=== PATIENT | male | born 1990 | race Caucasian/White ===

== ENCOUNTER 2017-01-08 16:53 | Emergency (ER) | payer OTHER ==
[2017-01-08] MEDS ORDERED: ONDANSETRON 4 MG/2 ML VIAL IVP ONE (17:08)
[2017-01-08] MEDS ORDERED: NS 1,000 ML IV ONE ×2 (17:25→18:50)
--- NOTE | 2017-01-08 17:31 | EDPHY ---
H & P Stated Complaint: abd discomfort and n/v/d for a wk, 3X vomiting today Time Seen by Provider: 01/08/17 17:09 HPI/ROS: CHIEF COMPLAINT: Nausea HISTORY OF PRESENT ILLNESS: This is a 26-year-old male, status post appendectomy 1 year ago, who presents with nausea. This is not a new problem for him but is been worse over the last 3 days. 2 days ago he had a bout of vomiting after eating, felt pretty well yesterday, but today he has had persistent nausea, 1 episode of vomiting after eating, and 2 episodes of diarrhea. The diarrhea is not unusual for him. He states that he regularly has diarrhea and never has a solid stool. He has not seen blood in his stool. For the past year, possibly longer, he has had an "unsettled" stomach with bloating, nausea, and lots of rumbling. He reports decreased appetite. No significant weight loss. Today he feels worse than usual. He did not have fever but was shivering earlier in the day. He ate [place] food yesterday--his girlfriend ate the same and she feels fine. 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 He recalls being told to be careful about what he eats. REVIEW OF SYSTEMS: A ten point review of systems was performed and is negative with the exception of the items mentioned in the HPI. Past medical history: Negative Past surgical history: Appendectomy Family history: Father has hypertension Social history: He works as a . He is here with his girlfriend. He does not use tobacco products. He drinks 2 beers per week. General Appearance: Alert. Vital signs reviewed. Blood pressure 130/80, heart rate 115 at triage. Eyes: Pupils equal and round, no conjunctival injection, no discharge. Anicteric. ENT, Mouth: Mucous membranes are moist, no oropharyngeal erythema or edema. Neck: No lymphadenopathy, supple. Respiratory: Lungs are clear to auscultation; no wheezes, rales, or rhonchi. Cardiovascular: tachycardic at the time of my initial exam, no murmur, rub, or gallop. Gastrointestinal: Abdomen is soft and nontender, no masses or organomegaly, bowel sounds normal. Skin: Warm and dry, no rashes on exposed skin, normal color. Back: Nontender to palpation over the thoracolumbar spine. No CVAT. Extremities: No lower extremity edema, no calf tenderness or swelling. Neurological: Alert and oriented. Moving all four extremities easily and equally. Psychiatric: Normal affect. - Personal History Current Tetanus/Diphtheria Vaccine: Unsure Current Tetanus Diphtheria and Acellular Pertussis (TDAP): Unsure - Medical/Surgical History Hx Asthma: No Hx Chronic Respiratory Disease: No Hx Diabetes: No Hx Cardiac Disease: No Hx Renal Disease: No Hx Cirrhosis: No Hx Alcoholism: No Hx HIV/AIDS: No Hx Splenectomy or Spleen Trauma: No Other PMH: Appendectomy - Social History Smoking Status: Never smoked Constitutional: Initial Vital Signs Temperature (C) 36.5 C 01/08/17 16:59 Heart Rate 115 H 01/08/17 16:59 Respiratory Rate 16 01/08/17 16:59 Blood Pressure 130/80 H 01/08/17 16:59 O2 Sat (%) 94 01/08/17 16:59 O2 Delivery Mode Room Air Allergies/Adverse Reactions: No Known Allergies Allergy (Verified 01/08/17 17:04) Home Medications: Medication Instructions Recorded Ondansetron Odt [Zofran Odt 4 mg 4 mg PO Q4 PRN #10 tab 01/08/17 (RX)] Medical Decision Making ED Course/Re-evaluation: Nausea with 1 bout of vomiting. Also 2 episodes of diarrhea today (not unusual for him). No fever. These problems are not new for him but seem to be worse over the last couple of days. Physical examination is unremarkable; no abdominal pain. Will rehydrate with IV fluids as he has had 2 bouts of diarrhea and 1 bout of vomiting with very little oral intake today. Zofran for nausea. Check blood work. Re-evaluated at 6:00 p.m.. He did vomit once before receiving the Zofran, not since. Abdomen remains nontender. No diarrhea thus far. Re-evaluated at 7:00 p.m.. Abdomen remains nontender. He still has mild nausea and feels that his 2nd L of IV fluid would be helpful. A 2nd L will be administered and then will try ice chips. I suspect that he has gastroenteritis on top of his chronic abdominal complaints. 7:45 p.m.. He has tolerated PO in feels well enough to return home after 2 L of IV normal saline. His tachycardia has resolved. He has not had further vomiting in the emergency department and has not had diarrhea since arriving here. He is given a prescription for Zofran to use if needed. He is also referred to GI to address his chronic abdominal complaints. Differential Diagnosis: Abdominal pain including but not limited to pancreatitis, inflammatory bowel, irritable bowel, cholecystitis, gastritis/peptic ulcer disease and urinary tract infection. - Data Points Laboratory Results: Laboratory Results 01/08/17 17:35 01/08/17 17:35 01/08/17 01/08/17 01/08/17 17:35 17:35 17:35 WBC 14.71 10^3/uL H 10^3/uL (3.80-9.50) RBC 5.98 10^6/uL 10^6/uL (4.40-6.38) Hgb 18.7 g/dL H g/dL (13.7-17.5) Hct 50.7 % % (40.0-51.0) MCV 84.8 fL fL (81.5-99.8) MCH 31.3 pg pg (27.9-34.1) MCHC 36.9 g/dL H g/dL (32.4-36.7) RDW 11.5 % % (11.5-15.2) Plt Count 243 10^3/uL 10^3/uL (150-400) MPV 9.0 fL fL (8.7-11.7) Neut % (Auto) 90.8 % H % (39.3-74.2) Lymph % (Auto) 4.1 % L % (15.0-45.0) [place] % (Auto) 4.0 % L % (4.5-13.0) Eos % (Auto) 0.5 % L % (0.6-7.6) Baso % (Auto) 0.1 % L % (0.3-1.7) Nucleat RBC Rel Count 0.0 % % (0.0-0.2) Absolute Neuts (auto) 13.36 10^3/uL H 10^3/uL (1.70-6.50) Absolute Lymphs (auto) 0.60 10^3/uL L 10^3/uL (1.00-3.00) Absolute Monos (auto) 0.59 10^3/uL 10^3/uL (0.30-0.80) Absolute Eos (auto) 0.08 10^3/uL 10^3/uL (0.03-0.40) Absolute Basos (auto) 0.01 10^3/uL L 10^3/uL (0.02-0.10) Absolute Nucleated RBC 0.00 10^3/uL 10^3/uL (0-0.01) Immature Gran % 0.5 % % (0.0-1.1) Immature Gran # 0.07 10^3/uL 10^3/uL (0.00-0.10) Sodium 140 mEq/L mEq/L (134-144) Potassium 4.2 mEq/L mEq/L (3.5-5.2) Chloride 97 mEq/L mEq/L (97-110) Carbon Dioxide 26 mEq/l mEq/l (22-31) Anion Gap 17 mEq/L H mEq/L (8-16) BUN 18 mg/dL mg/dL (7-23) Creatinine 1.0 mg/dL mg/dL (0.7-1.3) Estimated GFR > 60 Glucose 105 mg/dL H mg/dL (70-100) Calcium 10.0 mg/dL mg/dL (8.5-10.4) Total Bilirubin 1.0 mg/dL mg/dL (0.1-1.4) Conjugated Bilirubin 0.1 mg/dL mg/dL (0.0-0.5) Unconjugated Bilirubin 0.9 mg/dL mg/dL (0.0-1.1) AST 23 IU/L IU/L (17-59) ALT 35 IU/L IU/L (21-72) Alkaline Phosphatase 49 IU/L IU/L (38-126) Total Protein 7.5 g/dL g/dL (6.3-8.2) Albumin 4.8 g/dL g/dL (3.5-5.0) Lipase 209 IU/L IU/L (23-300) H. pylori IgG Antibody NEGATIVE (NEG) Medications Given: Discontinued Medications Sodium Chloride (Ns) 1,000 mls @ 0 mls/hr IV EDNOW ONE; Wide Open PRN Reason: Protocol Stop: 01/08/17 17:26 Last Admin: 01/08/17 17:29 Dose: 1,000 mls Sodium Chloride (Ns) 1,000 mls @ 0 mls/hr IV EDNOW ONE; Wide Open PRN Reason: Protocol Stop: 01/08/17 18:51 Last Admin: 01/08/17 18:56 Dose: 1,000 mls Ondansetron HCl (Zofran) 4 mg IVP EDNOW ONE Stop: 01/08/17 17:09 Last Admin: 01/08/17 17:34 Dose: 4 mg Departure - Departure Disposition: Home, Routine, Self-Care Clinical Impression: Gastroenteritis Nausea & vomiting Qualifiers: Vomiting type: unspecified Vomiting Intractability: non-intractable Qualified Code(s): R11.2 - Nausea with vomiting, unspecified Condition: Good Instructions: Gastroenteritis (ED), Acute Nausea and Vomiting (ED) Referrals: Juliana Fry MD [Medical Doctor] - As per Instructions Braden Barbosa MD [Medical Doctor] - As per Instructions Prescriptions: Ondansetron Odt [Zofran Odt 4 mg (RX)] 4 mg PO Q4 PRN #10 tab PRN Reason: nausea
[2017-01-08 17:39] LABS: % IMMATURE GRANULYOCYTES 0.5 % (0.0-1.1); ABSOLUTE IMMATURE GRANULOCYTES 0.07 10^3/uL (0.00-0.10); ADD DIFF? NO; ADD MORPH? NO; ADD SCAN? NO; ATYPICAL LYMPHOCYTE FLAG 0 (0-99); FRAGMENT RBC FLAG 0 (0-99); HEMATOCRIT 50.7 % (40.0-51.0); HEMOGLOBIN 18.7 g/dL (13.7-17.5); LEFT SHIFT FLG 0 (0-99); LIPEMIA HEMOLYSIS FLAG 90 (0-99); MEAN CELL HEMOGLOBIN 31.3 pg (27.9-34.1); MEAN CELL HEMOGLOBIN CONCENTR. 36.9 g/dL (32.4-36.7); MEAN CELL VOLUME 84.8 fL (81.5-99.8); PLATELET CLUMPS FLAG 20 (0-99); PLATELET COUNT 243 10^3/uL (150-400); RED BLOOD CELL COUNT 5.98 10^6/uL (4.40-6.38); RED CELL DISTRIBUTION WIDTH 11.5 % (11.5-15.2)
[2017-01-08 17:53] LABS: ALANINE AMINOTRANSFERASE 35 IU/L (21-72); ALBUMIN 4.8 g/dL (3.5-5.0); ALKALINE PHOSPHATASE 49 IU/L (38-126); ANION GAP 17 mEq/L (8-16); ASPARTATE AMINOTRANSFERASE 23 IU/L (17-59); BILIRUBIN-CONJUGATED 0.1 mg/dL (0.0-0.5); BILIRUBIN-UNCONJUGATED 0.9 mg/dL (0.0-1.1); CARBON DIOXIDE 26 mEq/l (22-31); CHLORIDE 97 mEq/L (97-110); GLOMERULAR FILTRATION RATE > 60; GLUCOSE 105 mg/dL (70-100); POTASSIUM 4.2 mEq/L (3.5-5.2); SODIUM 140 mEq/L (134-144); TOTAL PROTEIN 7.5 g/dL (6.3-8.2)
[2017-01-08] MEDS ORDERED: ONDANSETRON 4MG PREPACK#2 BTL TAKEHOME ONE ×2 (19:59→20:02)
[2017-01-08 20:12] VITALS: BP 103/65; PULSE 100; RESP 16; TEMP 98.2; O2SAT 94
== END 2017-01-08 20:10 | disposition home or self-care (01) ==
LOC: CED 16:53
PROC: 3E0337Z Introduction of Electrolytic and Water Balance Substance into Peripheral Vein, Percutaneous Approach (ICD-10-PCS; principal; 2017-01-08)
DX: K52.9 Noninfective gastroenteritis and colitis, unspecified (principal); E86.9 Volume depletion, unspecified
CPT/HCPCS: 80048-PO; 80076-PO; 83690-PO; 85025-PO; 86677-PO; 96374; J2405